=== PATIENT | female | born 1930 | race Caucasian/White ===

== ENCOUNTER 2019-08-31 16:14 | Inpatient (IN) | payer MEDICARE, BC, OTHER ==
--- NOTE | 2019-08-31 17:03 | CT ---
[id number] CT/CT Head WO IV EXAM: CT Head WO IV CLINICAL DATA: FREQUENT FALLS COMPARISON STUDY: 12/21/2017. FINDINGS: No intracranial hemorrhage, extra-axial fluid collection, mass, or acute ischemia. Generalized parenchymal atrophy with scattered areas of nonspecific white matter disease, commonly seen as sequela of chronic microvascular ischemia. Soft tissues are unremarkable. Paranasal sinuses and mastoid air cells are clear. IMPRESSION: No acute intracranial findings. Ty Otto DO 08/31/19 1918 Thank you for allowing us to participate in the care of your patient.
[2019-08-31] MEDS ORDERED: Calcium Carbonate/Vitamin D3 1250 MG-200 Unit Tab PO PRN (18:05)
[2019-08-31] MEDS ORDERED: Bisacodyl 5 MG Tab PO PRN (18:05)
[2019-08-31] MEDS ORDERED: Menthol/Methyl Salicylate 85 GM Tube TOP PRN (18:05)
[2019-08-31] MEDS ORDERED: Sodium Chloride 0.9% 1,000 ML IV SCH (18:30)
[2019-08-31] MEDS: Latanoprost 0.005% Ophth Soln 2.5 ML Bottle EYEBOTH SCH (20:27)
[2019-08-31] MEDS: Acetaminophen 500 MG Tab PO SCH (20:28)
[2019-08-31] MEDS: Gabapentin 100 MG Cap PO SCH ×2 (20:30)
[2019-08-31] MEDS: Melatonin 3 MG Tab PO SCH (20:31)
[2019-08-31] MEDS: Baclofen 10 MG Tab PO SCH (20:32)
[2019-08-31] MEDS: Sulfamethoxazole/Trimethoprim 800-160 MG Tab PO SCH (20:32)
[2019-08-31] MEDS: Polyethylene Glycol 3350 Powder 17 GM Packet PO SCH (20:32)
--- NOTE | 2019-08-31 22:08 | PCM.SN.2 ---
- Free Text/Narrative Note: Called by nurse that patient is restless despite taking her pm medications. Not cooperative with cares but not overtly combative. She has taken benadryl in the past (as recently as 2016). Therefore, will try this first before doing any more risky medications. If this is not effective, will consider a dose of seroquel.
[2019-08-31] MEDS: Calcium Carbonate/Vitamin D3 1250 MG-200 Unit Tab PO SCH (23:00)
[2019-08-31] MEDS: diphenhydrAMINE 25 MG Cap PO PRN (23:02)
--- NOTE | 2019-09-01 06:04 | HP ---
CHIEF COMPLAINT: Frequent falls. HISTORY OF PRESENT ILLNESS: The patient is an 89-year-old female, resident of Dr. Bijal Oneil from [facility]. She has had 4 falls since 07/16/2019. She is currently being treated with a bladder infection of E coli with Bactrim DS from 08/28/2019. She was brought over to the clinic because of concerns with falls, hematoma, more assistance. She is fatigued. The patient is pleasantly confused. She denies pain. [place]. She has not had any nausea or vomiting. Her pain has not been significant. To note, her caregiver who brought her over is not really familiar with her story as to when she had fallen. The patient has a history of dementia as well as has had previous cerebral hemorrhage that happened on 12/24/2017. MEDICATIONS: That she is currently on are Aleve 220 mg 1 pill twice a day scheduled, Aspercreme 10% to left hip p.r.n. t.i.d., baclofen 10 mg 1 pill a day, Bactrim DS 1 pill twice a day for 5 days started on 08/28/2019, bisacodyl laxative 5 mg daily as needed for constipation, calcium with vitamin D 315/250 one pill twice a day, Cymbalta 60 mg, she gets 90 mg once a day for pain, Estrace vaginal cream externally in anya area once a day every Tuesday and Tuesday. She has extra strength Tylenol 500 mg 2 pills 3 times a day, gabapentin 300 mg 1 pill a day and 200 mg 1 pill twice a day, eye vitamins 1 pill twice a day, Lasix 20 mg 1 pill daily, levothyroxine 137 mcg 1 pill a day, lidocaine patch 4% to left hip, remove after 12 hours, melatonin 3 mg 2 pills at bedtime, MiraLAX powder 17 g twice a day, multivitamin 1 pill a day, Norvasc 5 mg 1 pill a day, Senna Plus 8.6/50 mg 1 pill twice a day, Tums chewable 500 mg 2 pills 4 times a day as needed, Vasotec 15 mg 1 pill daily, vitamin D 1000 units 1 pill a day, Xalatan 0.005% 1 drop both eyes a day. ALLERGIES: Adhesive tape, mesh use for surgery. The patient is code level 2 status. PAST MEDICAL HISTORY: The patient has Alzheimer dementia, anxiety disorder, hypertension, gastroesophageal reflux disease, depressed mood with an adjustment disorder, anxiety disorder, chronic constipation, hyperlipidemia, nonrheumatic valvular heart disease, cerebral hemorrhage without loss of consciousness, frequent falls, hypothyroidism, fibromyalgia, hormone replacement therapy, atrophic vaginitis, muscle weakness, glaucoma, type 2 diabetes mellitus, chronic low back pain. She also has benign positional vertigo, E coli UTI from 08/28/2019, glaucoma, hyperlipidemia, mitral regurgitation, uterine cancer in 1997. PAST SURGICAL HISTORY: She had a foot fracture with ORIF in 2011. She had an appendectomy, arthroplasty of her knee. She had a , cholecystectomy, hernia repair, joint replacement of both knees. She has had laminectomy with partial facetectomy, foraminotomy, herniated diskectomy. She has had spine surgery x2. She had tonsillectomy and adenoidectomy. She has had total abdominal hysterectomy for uterine cancer in 1997. FAMILY MEDICAL HISTORY: Mother had a fractured hip. Father had diabetes. Otherwise, other family history is not known. SOCIAL HISTORY: She has never smoked. She has been a resident of [facility] since 2018. She has 3 daughters and 1 son. REVIEW OF SYSTEMS: The patient usually walks with a walker. She does have chronic back pain. Does have reflux. She has forgetfulness. No coughing or shortness of breath. She does have bruising of her eye on the right side of her face. She has had frequent falls. The patient is very forgetful. PHYSICAL EXAMINATION: Vital Signs: The patient's vital signs show that her weight is 145 pounds, her blood pressure is 144/68, temperature is 98.2, pulse 88, sats are 97%. To note, she has had a weight loss of 10 pounds over the past 2 months. Skin: She has bruising on her right forehead, her right external eye ball area, as well as zygomatic arch. HEENT: Her skull is nontender to palpation. Pupils are equal and reactive to light. Extraocular eye movements are intact. Retinal exam is normal. Her tympanic membranes are normal with no hemotympanum. Nose is nontender to palpation. Pharynx is normal. Neck: Supple. No anterior cervical lymphadenopathy. Heart: Regular rate and rhythm with 2/6 systolic ejection murmur. Lungs: Clear to auscultation. Abdomen: Obese, soft, nontender. No hepatosplenomegaly. Back: She has some chronic low back pain in her right sciatic area. Pelvic, , and Breasts: Deferred. Lower Extremities: Have no deformities. Nontender. Neurologic: She is pleasantly confused. She thinks she is going back to the farm. She does get weak with standing. She does have back pain. 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 She can raise her arms to about 90 degrees and no further. She can flex her leg. She is a little bit weak with standing. Psych: The patient is pleasantly confused. No concept of where she is or where she lives. She is very forgetful. LABORATORY DATA: Her lab done at the clinic showed that her sodium is 128, which is deviated from her previous sodium that was last done on 06/21/2019 when it was 132, potassium is 5.2, creatinine is 0.8, GFR is 64, glucose is 108, CO2 of 25, chloride 91, calcium 9.8. Hemoglobin is 13.6, white blood cell count 8.0, platelet count 3000. Differential was referred to [place]. Her last hemoglobin A1c on 06/21/2019 was 6.5. Last TSH on 04/18/2019 was 9.77. The patient's urine done on 08/28/2019 showed E coli present that was sensitive to Bactrim. IMPRESSION: 1. Hyponatremia. 2. Frequent falls. 3. Contusion of head. 4. Alzheimer dementia. 5. Past history of cerebral hemorrhage with mixed current urinary tract infection. 6. Type 2 diabetes mellitus. 7. Chronic low back pain. PLAN: Because of concerns with the patient's electrolyte abnormalities and falls, I do feel she should be admitted to acute care to [facility]. We will obtain head CT imaging. We will continue her on her antibiotic of Bactrim for her bladder infection. We will give IV hydration with normal saline. We will have Physical Therapy assess the patient. However, it is a weekend and so they will not be able to see the patient until 08/04/2019. The patient is code level 2 status, so no resuscitation, no intubation, and that it is anticipated that the patient will be able to return to [facility]. We will check serial electrolytes on the patient. Dr. Shannon Mccarthy is an on-call physician for the weekend and she has been notified of the patient's admission as well as Dr. Bijal Vieira. The patient will not be placed on Lovenox for DVT prophylaxis because of concerns with frequent falls with head injuries, that she placed herself at risk for subdural bleeds. We will monitor her thyroid and diabetes as well. GM08/31/2019 17:40:27 MODL: 08/31/2019 19:46:56 /[id number]
[2019-09-01] MEDS: Levothyroxine 25 MCG Tab PO SCH (06:26)
[2019-09-01] MEDS: Levothyroxine 112 MCG Tab PO SCH (06:26)
[2019-09-01] MEDS: Multivitamins with Iron/Calcium/Folic Acid/Minerals Tab PO SCH (08:16)
[2019-09-01] MEDS: Gabapentin 100 MG Cap PO SCH ×3 (08:16→20:08)
[2019-09-01] MEDS: DULoxetine 30 MG Cap PO SCH (08:16)
[2019-09-01] MEDS: Cholecalciferol (Vitamin D3) 25 MCG Tab PO SCH (08:16)
[2019-09-01] MEDS: Acetaminophen 500 MG Tab PO SCH ×3 (08:16→20:10)
[2019-09-01] MEDS: DULoxetine 60 MG Cap PO SCH (08:17)
[2019-09-01] MEDS: Beta-Carotene (Vitamin A) w/Vitamin C & E plus Minerals Tab PO SCH ×2 (08:17→20:10)
[2019-09-01] MEDS: Furosemide 20 MG Tab PO SCH (08:17)
[2019-09-01] MEDS: amLODIPine 5 MG Tab PO SCH (08:17)
[2019-09-01] MEDS: Sulfamethoxazole/Trimethoprim 800-160 MG Tab PO SCH ×2 (08:17→20:10)
[2019-09-01] MEDS: Polyethylene Glycol 3350 Powder 17 GM Packet PO SCH ×2 (08:17→20:09)
[2019-09-01] MEDS: Calcium Carbonate/Vitamin D3 1250 MG-200 Unit Tab PO SCH ×2 (08:17→20:10)
[2019-09-01] MEDS: Lidocaine 4% 1 each Patch TOP SCH (08:17)
[2019-09-01 08:18] LABS: CHLORIDE,CL 92 mmol/L (98-107)
[2019-09-01 08:19] LABS: ANION GAP 14.2 mmol/L (10-20); SODIUM,NA 127 mmol/L (136-145)
--- NOTE | 2019-09-01 10:41 | PCM.PN ---
- General Info Date of Service: 09/01/19 Subjective Update: 89 yo female hospital day #2 admitted with frequent falls and hyponatremia. The patient got very little sleep last night. She is wondering about getting up and dressed this morning. She also states she is having some neck pain going in to her shoulders. She does recall falling a few days ago and hitting her head. Nursing staff note that she is a heavy 2 assist at this point compared to her usual stand-by assist at the care center. She has not complained of pain with weight bearing. Her daughter is wondering about hip x-rays to make sure she did not sustain a hip fracture to explain her ongoing difficulty with mobility. - Review of Systems Systems Review Comment:: Unable to assess as patient is not a reliable historian in the setting of severe dementia - Patient Data Vitals - Most Recent: Last Vital Signs Temp 36.3 C 09/01/19 09:34 Pulse 84 09/01/19 09:34 Resp 17 09/01/19 09:34 BP 135/57 L 09/01/19 09:34 Pulse Ox 94 L 09/01/19 09:34 Weight - Most Recent: 68.266 kg I&O - Last 24 Hours: Intake & Output 08/31/19 09/01/19 09/01/19 22:59 06:59 14:59 Intake Total 440 780 100 Output Total 300 1400 Balance 140 -620 100 Lab Results Last 24 Hours: Laboratory Results - last 24 hr 08/31/19 08/31/19 09/01/19 Range/Units 17:52 23:05 07:40 WBC 7.7 (4.0-10.0) x10^3/uL RBC 4.33 (4.00-5.50) x10^6/uL Hgb 12.8 (12.0-16.0) g/dL Hct 38.5 (33.0-47.0) % MCV 88.9 D (78.0-93.0) fL MCH 29.6 (26.0-32.0) pg MCHC 33.2 (32.0-36.0) g/dL RDW Coeff of [place] 12.9 (10.0-15.0) % Plt Count 289 (130-400) x10^3/uL Neut % (Auto) 65.1 (50.0-80.0) % Lymph % (Auto) 16.0 L (25.0-50.0) % [place] % (Auto) 16.3 H (2.0-11.0) % Eos % (Auto) 2.3 (0.0-4.0) % Baso % (Auto) 0.3 (0.2-1.2) % Sodium (136-145) mmol/L Potassium (3.5-5.1) mmol/L Chloride (98-107) mmol/L Carbon Dioxide (21-32) mmol/L Anion Gap (10-20) mmol/L BUN (7-18) mg/dL Creatinine (0.55-1.02) mg/dL Est Cr Clr Drug Dosing mL/min Estimated GFR (MDRD) Glucose (74-106) mg/dL POC Glucose 127 H (74-106) mg/dL Calcium (8.5-10.1) mg/dL Magnesium (1.8-2.4) mg/dL TSH, Ultra Sensitive (0.358-3.74) uIU/mL COVID-19 ([facility]) Negative (NEGATIVE) 09/01/19 Range/Units 07:40 WBC (4.0-10.0) x10^3/uL RBC (4.00-5.50) x10^6/uL Hgb (12.0-16.0) g/dL Hct (33.0-47.0) % MCV (78.0-93.0) fL MCH (26.0-32.0) pg MCHC (32.0-36.0) g/dL RDW Coeff of [place] (10.0-15.0) % Plt Count (130-400) x10^3/uL Neut % (Auto) (50.0-80.0) % Lymph % (Auto) (25.0-50.0) % [place] % (Auto) (2.0-11.0) % Eos % (Auto) (0.0-4.0) % Baso % (Auto) (0.2-1.2) % Sodium 127 L* (136-145) mmol/L Potassium 4.2 (3.5-5.1) mmol/L Chloride 92 L (98-107) mmol/L Carbon Dioxide 25 (21-32) mmol/L Anion Gap 14.2 (10-20) mmol/L BUN 13 (7-18) mg/dL Creatinine 0.6 (0.55-1.02) mg/dL Est Cr Clr Drug Dosing 55.97 mL/min Estimated GFR (MDRD) > 60 Glucose 118 H (74-106) mg/dL POC Glucose (74-106) mg/dL Calcium 8.6 (8.5-10.1) mg/dL Magnesium 1.9 (1.8-2.4) mg/dL TSH, Ultra Sensitive 5.661 H (0.358-3.74) uIU/mL COVID-19 ([facility]) (NEGATIVE) Med Orders - Current: Current Medications Acetaminophen (Tylenol Extra Strength) 1,000 mg PO TID [facility] Last Admin: 09/01/19 08:16 Dose: 1,000 mg Documented by: Amlodipine Besylate (Norvasc) 5 mg PO DAILY [facility] Last Admin: 09/01/19 08:17 Dose: 5 mg Documented by: Baclofen (Lioresal) 10 mg PO BEDTIME [facility] Last Admin: 08/31/19 20:32 Dose: 10 mg Documented by: Bisacodyl (Dulcolax) 5 mg PO DAILY PRN PRN Reason: Constipation Calcium Carbonate (Calcium Carbonate/Vitamin D 1250 Mg-200 Unit) 2 tab PO QID PRN PRN Reason: Dyspepsia Last Admin: 08/31/19 20:31 Dose: 2 tab Documented by: Calcium Carbonate (Calcium Carbonate/Vitamin D 1250 Mg-200 Unit) 1 tab PO BID [facility] Last Admin: 09/01/19 08:17 Dose: 1 tab Documented by: Cholecalciferol (Vitamin D3) 25 mcg PO DAILY [facility] Last Admin: 09/01/19 08:16 Dose: 25 mcg Documented by: Diphenhydramine HCl (Benadryl) 25 mg PO BEDTIME PRN PRN Reason: Insomnia Last Admin: 08/31/19 23:02 Dose: 25 mg Documented by: Duloxetine HCl (Cymbalta) 30 mg PO DAILY [facility] Last Admin: 09/01/19 08:16 Dose: 30 mg Documented by: Duloxetine HCl (Cymbalta) 60 mg PO DAILY [facility] Last Admin: 09/01/19 08:17 Dose: 60 mg Documented by: Enalapril Maleate (Vasotec) 15 mg PO DAILY [facility] Last Admin: 09/01/19 08:16 Dose: 15 mg Documented by: Furosemide (Lasix) 20 mg PO DAILY [facility] Last Admin: 09/01/19 08:17 Dose: 20 mg Documented by: Gabapentin (Neurontin) 300 mg PO BEDTIME [facility] Last Admin: 08/31/19 20:30 Dose: 300 mg Documented by: Gabapentin (Neurontin) 200 mg PO BID [facility] Last Admin: 09/01/19 08:16 Dose: 200 mg Documented by: Sodium Chloride (Normal Saline) 1,000 mls @ 100 mls/hr IV ASDIRECTED [facility] Last Admin: 09/01/19 08:20 Dose: 100 mls/hr Documented by: Latanoprost (Xalatan 0.005% Oph Soln) 0 ml EYEBOTH BEDTIME [facility] Last Admin: 08/31/19 20:27 Dose: 1 drop Documented by: Levothyroxine Sodium (Levothyroxine) 112 mcg PO ACBREAKFAST [facility] Last Admin: 09/01/19 06:26 Dose: 112 mcg Documented by: Levothyroxine Sodium (Levothyroxine) 25 mcg PO ACBREAKFAST [facility] Last Admin: 09/01/19 06:26 Dose: 25 mcg Documented by: Lidocaine (Aspercreme 4%) 2 each TOP DAILY [facility] Last Admin: 09/01/19 08:17 Dose: Not Given Documented by: Melatonin (Melatonin) 6 mg PO BEDTIME [facility] Last Admin: 08/31/19 20:31 Dose: 6 mg Documented by: Methyl Salicylate (Icy Hot Cream) 0 gm TOP TID PRN PRN Reason: Pain Miscellaneous Information (Remove Patch) 2 ea TRDERM Q24H [facility] Multivitamins/Minerals (Thera M Plus) 1 tab PO DAILY [facility] Last Admin: 09/01/19 08:16 Dose: 1 tab Documented by: Multivitamins/Minerals (Prosight) 1 tab PO BID [facility] Last Admin: 09/01/19 08:17 Dose: 1 tab Documented by: Naproxen (Naproxen Sodium) 220 mg PO BID PRN PRN Reason: Pain Last Admin: 08/31/19 20:31 Dose: 220 mg Documented by: Non-Formulary Medication (Estradiol [Estrace 0.01% Vaginal Crm]) 2 gram TOP Q7D [facility] Polyethylene Glycol (Miralax) 17 gm PO BID [facility] Last Admin: 09/01/19 08:17 Dose: Not Given Documented by: Senna/Docusate Sodium (Senna Plus) 1 tab PO BID [facility] Last Admin: 09/01/19 08:15 Dose: 1 tab Documented by: Trimethoprim/Sulfamethoxazole (Septra Ds) 1 tab PO BID [facility] Stop: 09/02/19 23:59 Last Admin: 09/01/19 08:17 Dose: 1 tab Documented by: - Exam General: Alert, Cooperative, No Acute Distress HEENT: Pupils Equal, Pupils Reactive, Mucous Membr. Moist/[place] Neck: Supple, Trachea Midline, No Thyromegaly. No: Lymphadenopathy Lungs: Clear to Auscultation, Normal Respiratory Effort Cardiovascular: Regular Rate, Regular Rhythm, No Murmurs GI/Abdominal Exam: Normal Bowel Sounds, Soft, Non-Tender, No Organomegaly, No Distention, No Mass Back Exam: Paraspinal Tenderness (cervical spine) Extremities: Non-Tender, No Pedal Edema, Normal Capillary Refill Peripheral Pulses: 2+: Radial (L), Radial (R) Skin: Warm, Dry, Intact Sepsis Event Note - Evaluation Sepsis Screening Result: No Definite Risk - Focused Exam Vital Signs: Vital Signs Temp Pulse Resp BP BP Pulse Ox 09/01/19 09:34 36.3 C 84 17 135/57 L 94 L 09/01/19 08:17 187/87 H 09/01/19 08:16 187/87 H 09/01/19 06:00 36.5 C 103 H 20 185/87 H 96 Date Exam was Performed: 09/01/19 Time Exam was Performed: 10:35 - Problem List & Annotations (1) Frequent falls SNOMED Code(s): 567741703 Code(s): R29.6 - REPEATED FALLS Status: Acute Current Visit: Yes (2) Head contusion SNOMED Code(s): 747208984 Code(s): S00.93XA - CONTUSION OF UNSPECIFIED PART OF HEAD, INITIAL ENCOUNTER Status: Acute Current Visit: Yes Qualifiers: Encounter type: subsequent encounter Contusion of head detail: orbital tissues Laterality: right Qualified Code(s): S05.11XD - Contusion of eyeball and orbital tissues, right eye, subsequent encounter (3) Hyponatremia SNOMED Code(s): 47441710 Code(s): E87.1 - HYPO-OSMOLALITY AND HYPONATREMIA Status: Chronic Current Visit: Yes (4) Alzheimer's dementia SNOMED Code(s): 81114642 Code(s): G30.9 - ALZHEIMER'S DISEASE, UNSPECIFIED; F02.80 - DEMENTIA IN OTH DISEASES CLASSD ELSWHR W/O BEHAVRL DISTURB Status: Chronic Current Visit: Yes Qualifiers: Alzheimer's disease onset: late-onset Dementia behavioral disturbance: without behavioral disturbance Qualified Code(s): G30.1 - Alzheimer's disease with late onset; F02.80 - Dementia in other diseases classified elsewhere without behavioral disturbance (5) Diabetes mellitus SNOMED Code(s): 30025990 Code(s): E11.9 - TYPE 2 DIABETES MELLITUS WITHOUT COMPLICATIONS Status: Chronic Current Visit: Yes Qualifiers: Diabetes mellitus type: type 2 Diabetes mellitus shelter insulin use: without shelter use Diabetes mellitus complication status: without complication Qualified Code(s): E11.9 - Type 2 diabetes mellitus without complications (6) Low back pain SNOMED Code(s): 343359177 Code(s): M54.5 - LOW BACK PAIN Status: Chronic Current Visit: Yes Qualifiers: Chronicity: chronic Back pain laterality: unspecified Sciatica presence: unspecified whether sciatica present Qualified Code(s): M54.5 - Low back pain; G89.29 - Other chronic pain - Problem List Review Problem List Initiated/Reviewed/Updated: Yes - My Orders Last 24 Hours: My Active Orders 08/31/19 22:06 diphenhydrAMINE [Benadryl] 25 mg PO BEDTIME PRN 08/31/19 23:05 CULTURE MRSA SURVEY [RM] Routine 09/01/19 09:24 Cervical Spine wo Cont [CT] Routine 09/01/19 09:52 Hip Min 2V w Pelvis Bi [CR] Routine 09/01/19 15:00 SODIUM,NA [CHEM] Routine 09/02/19 05:11 BASIC METABOLIC PANEL,BMP [CHEM] Routine CBC WITH AUTO DIFF [HEME] Routine - Assessment Assessment:: 89 yo female hospital day #2 with hyponatremia and a decline in functional status. Sodium is stable today. Patient with no change in symptoms from admission. - Plan Plan:: #1 Frequent Falls #2 Head Contusion - Cause for her decline in mobility remains unclear. - Doubt the hyponatremia as her last sodium was 132 so she is not far off from her baseline at this point. She is being treated for a UTI, which could contribute. No other s/s of infection; COVID test was negative. CT head negative on admission. - Will do neck CT to exclude any fracture there as the cause in light of her significant status change and complaints of neck pain. Also reasonable to do hip x-rays as her daughter requests. - Otherwise, will monitor labs daily. - Polypharmacy may be a contributor and her medications can be reviewed if symptoms do not improve. #3 Hyponatremia, chronic - Patient will get another 500 mL of IV fluids today. Does not appear she was significantly dehydrated on admit. Also no evidence this is CHF exacerbation. - Sodium has been low since at least June (132 in June); therefore, this is not an acute change. - Is also not likely the cause for her other symptoms. - Will obtain urine sodium and osmolality in the am to help clarify. #4 Alzheimer dementia - Continue frequent reorientation. - Continue home medications. #5 UTI - Patient will complete her course of bactrim tomorrow. #6 Type 2 DM - This is diet controlled. - Will not monitor glucoses aside from with am labs. #7 Chronic low back pain - Continue home medications. Patient will remain on acute status today - anticipate she will stay through the weekend given residence in a SNF. See plan as above. Code status is DNR/DNI - discussed on admission. Patient is not on pharmacologic VTE prophylaxis as it is felt the risks outweigh the benefits.
--- NOTE | 2019-09-01 13:44 | CT ---
[id number] CT/CT Cervical Spine WO IV Exam: CT Cervical Spine WO IV CLINICAL DATA: FALL. COMPARISON: None. FINDINGS: No definite acute fractures identified. Grade 1 anterolisthesis of C4 over C5 and C7 over T1. The C1-C2 articulation is unremarkable. The prevertebral soft tissues are within normal limits. Advanced degenerative changes of the cervical spine including loss of disc space height, endplate osteophytosis and facet arthropathy. These findings are most pronounced at C3-C4 IMPRESSION: NO DEFINITE ACUTE FRACTURE OR SUBLUXATION. Ty Otto DO 09/01/19 [id number] Thank you for allowing us to participate in the care of your patient.
--- NOTE | 2019-09-01 13:46 | CR ---
[id number] RAD/RAD Pelvis 1V W Chance Hip 2V EXAM: 5 VIEWS PELVIS AND BILATERAL HIPS. INDICATION: FALL, WEAKNESS. COMPARISON: None. DISCUSSION: No definite acute fracture, dislocation or other acute osseous abnormality. [id number] degenerative changes of the femoral acetabular joint bilaterally. There appear to be old healed fractures of the left superior and inferior pubic ramus. IMPRESSION: 1. Old healed fractures of the left superior and inferior pubic ramus. No definite acute fractures identified. Ty Otto DO 09/01/19 [id number] Thank you for allowing us to participate in the care of your patient.
[2019-09-01] MEDS: Melatonin 3 MG Tab PO SCH (20:09)
[2019-09-01] MEDS: Baclofen 10 MG Tab PO SCH (20:10)
[2019-09-01] MEDS: diphenhydrAMINE 25 MG Cap PO PRN (20:10)
[2019-09-01] MEDS: Latanoprost 0.005% Ophth Soln 2.5 ML Bottle EYEBOTH SCH (20:11)
[2019-09-01] MEDS: Sodium Chloride 1 GM Tab PO SCH (20:15)
[2019-09-02] MEDS: Levothyroxine 25 MCG Tab PO SCH (06:13)
[2019-09-02] MEDS: Levothyroxine 112 MCG Tab PO SCH (06:13)
[2019-09-02] MEDS: DULoxetine 30 MG Cap PO SCH (07:40)
[2019-09-02] MEDS: Multivitamins with Iron/Calcium/Folic Acid/Minerals Tab PO SCH (07:40)
[2019-09-02] MEDS: Sulfamethoxazole/Trimethoprim 800-160 MG Tab PO SCH ×2 (07:40→20:09)
[2019-09-02] MEDS: Gabapentin 100 MG Cap PO SCH ×3 (07:40→20:08)
[2019-09-02] MEDS: DULoxetine 60 MG Cap PO SCH (07:40)
[2019-09-02] MEDS: Cholecalciferol (Vitamin D3) 25 MCG Tab PO SCH (07:40)
[2019-09-02] MEDS: Acetaminophen 500 MG Tab PO SCH ×3 (07:40→20:09)
[2019-09-02] MEDS: Furosemide 20 MG Tab PO SCH (07:41)
[2019-09-02] MEDS: Polyethylene Glycol 3350 Powder 17 GM Packet PO SCH ×2 (07:41→20:10)
[2019-09-02] MEDS: amLODIPine 5 MG Tab PO SCH (07:41)
[2019-09-02] MEDS: Calcium Carbonate/Vitamin D3 1250 MG-200 Unit Tab PO SCH ×2 (07:41→20:09)
[2019-09-02] MEDS: Lidocaine 4% 1 each Patch TOP SCH ×2 (07:42→09:43)
[2019-09-02] MEDS: Beta-Carotene (Vitamin A) w/Vitamin C & E plus Minerals Tab PO SCH ×2 (07:42→20:09)
[2019-09-02] MEDS: Sodium Chloride 1 GM Tab PO SCH ×3 (07:43→20:36)
[2019-09-02 08:22] LABS: ANION GAP 14.1 mmol/L (10-20)
[2019-09-02] MEDS ORDERED: ESTRADIOL TOP SCH (09:00)
--- NOTE | 2019-09-02 09:24 | PCM.PN ---
- General Info Date of Service: 09/02/19 Subjective Update: 89 yo female hospital day #3 admitted with frequent falls and hyponatremia. She states she is tired today. She has not really slept since admission. Staff also note she is more confused today than yesterday. She otherwise denies concerns and staff deny any other specific complaints. - Review of Systems General: Reports: No Symptoms HEENT: Reports: No Symptoms Pulmonary: Reports: No Symptoms Cardiovascular: Reports: No Symptoms Gastrointestinal: Reports: No Symptoms Genitourinary: Reports: No Symptoms Musculoskeletal: Reports: No Symptoms Skin: Reports: No Symptoms Systems Review Comment:: patient denies symptoms - reliability of history is questionable in the setting of underlying dementia - Patient Data Vitals - Most Recent: Last Vital Signs Temp 35.4 C L 09/02/19 06:00 Pulse 92 09/02/19 06:00 Resp 20 09/02/19 06:00 BP 149/57 H 09/02/19 07:41 Pulse Ox 96 09/02/19 06:00 Weight - Most Recent: 68.266 kg I&O - Last 24 Hours: Intake & Output 09/01/19 09/02/19 09/02/19 22:59 06:59 14:59 Intake Total 800 Output Total 900 Balance -100 Lab Results Last 24 Hours: Laboratory Results - last 24 hr 09/01/19 09/02/19 09/02/19 Range/Units 14:58 06:12 07:44 WBC 11.2 H (4.0-10.0) x10^3/uL RBC 4.72 (4.00-5.50) x10^6/uL Hgb 14.1 (12.0-16.0) g/dL Hct 42.0 (33.0-47.0) % MCV 89.0 (78.0-93.0) fL MCH 29.9 (26.0-32.0) pg MCHC 33.6 (32.0-36.0) g/dL RDW Coeff of Nolvia 13.2 (10.0-15.0) % Plt Count 350 (130-400) x10^3/uL Add Manual Diff Yes Neutrophils % (Manual) 58 (50-80) % Band Neutrophils % 5 (0-6) % Lymphocytes % (Manual) 19 L (25-50) % Monocytes % (Manual) 13 H (2-11) % Eosinophils % (Manual) 2 (0-4) % Metamyelocytes % 3 H (0) % Platelet Estimate Adequate Anisocytosis 1+ slight H Sodium 127 L* (136-145) mmol/L Potassium (3.5-5.1) mmol/L Chloride (98-107) mmol/L Carbon Dioxide (21-32) mmol/L Anion Gap (10-20) mmol/L BUN (7-18) mg/dL Creatinine (0.55-1.02) mg/dL Est Cr Clr Drug Dosing mL/min Estimated GFR (MDRD) Glucose (74-106) mg/dL POC Glucose 119 H (74-106) mg/dL Calcium (8.5-10.1) mg/dL NT-Pro-B Natriuret Pep (<=450) pg/mL 09/02/19 Range/Units 07:44 WBC (4.0-10.0) x10^3/uL RBC (4.00-5.50) x10^6/uL Hgb (12.0-16.0) g/dL Hct (33.0-47.0) % MCV (78.0-93.0) fL MCH (26.0-32.0) pg MCHC (32.0-36.0) g/dL RDW Coeff of Nolvia (10.0-15.0) % Plt Count (130-400) x10^3/uL Add Manual Diff Neutrophils % (Manual) (50-80) % Band Neutrophils % (0-6) % Lymphocytes % (Manual) (25-50) % Monocytes % (Manual) (2-11) % Eosinophils % (Manual) (0-4) % Metamyelocytes % (0) % Platelet Estimate Anisocytosis Sodium 126 L* (136-145) mmol/L Potassium 5.1 (3.5-5.1) mmol/L Chloride 92 L (98-107) mmol/L Carbon Dioxide 25 (21-32) mmol/L Anion Gap 14.1 (10-20) mmol/L BUN 22 H (7-18) mg/dL Creatinine 0.9 (0.55-1.02) mg/dL Est Cr Clr Drug Dosing 37.31 mL/min Estimated GFR (MDRD) 59 Glucose 132 H (74-106) mg/dL POC Glucose (74-106) mg/dL Calcium 9.6 (8.5-10.1) mg/dL NT-Pro-B Natriuret Pep 142 (<=450) pg/mL Sudhir Results Last 24 Hours: Microbiology 08/31/19 23:05 MRSA Surveillance Culture - Final Nasal, Unspecified NO MRSA ISOLATED Med Orders - Current: Current Medications Acetaminophen (Tylenol Extra Strength) 1,000 mg PO TID [facility] Last Admin: 09/02/19 07:40 Dose: 1,000 mg Documented by: Amlodipine Besylate (Norvasc) 5 mg PO DAILY [facility] Last Admin: 09/02/19 07:41 Dose: 5 mg Documented by: Baclofen (Lioresal) 10 mg PO BEDTIME [facility] Last Admin: 09/01/19 20:10 Dose: 10 mg Documented by: Bisacodyl (Dulcolax) 5 mg PO DAILY PRN PRN Reason: Constipation Calcium Carbonate (Calcium Carbonate/Vitamin D 1250 Mg-200 Unit) 2 tab PO QID PRN PRN Reason: Dyspepsia Last Admin: 08/31/19 20:31 Dose: 2 tab Documented by: Calcium Carbonate (Calcium Carbonate/Vitamin D 1250 Mg-200 Unit) 1 tab PO BID [facility] Last Admin: 09/02/19 07:41 Dose: 1 tab Documented by: Cholecalciferol (Vitamin D3) 25 mcg PO DAILY [facility] Last Admin: 09/02/19 07:40 Dose: 25 mcg Documented by: Diphenhydramine HCl (Benadryl) 25 mg PO BEDTIME PRN PRN Reason: Insomnia Last Admin: 09/01/19 20:10 Dose: 25 mg Documented by: Duloxetine HCl (Cymbalta) 30 mg PO DAILY [facility] Last Admin: 09/02/19 07:40 Dose: 30 mg Documented by: Duloxetine HCl (Cymbalta) 60 mg PO DAILY [facility] Last Admin: 09/02/19 07:40 Dose: 60 mg Documented by: Enalapril Maleate (Vasotec) 15 mg PO DAILY [facility] Last Admin: 09/02/19 07:41 Dose: 15 mg Documented by: Furosemide (Lasix) 20 mg PO DAILY [facility] Last Admin: 09/02/19 07:41 Dose: 20 mg Documented by: Gabapentin (Neurontin) 300 mg PO BEDTIME [facility] Last Admin: 09/01/19 20:08 Dose: 300 mg Documented by: Gabapentin (Neurontin) 200 mg PO BID [facility] Last Admin: 09/02/19 07:40 Dose: 200 mg Documented by: Sodium Chloride (Normal Saline) 1,000 mls @ 100 mls/hr IV ASDIRECTED [facility] Latanoprost (Xalatan 0.005% Ophth Soln) 0 ml EYEBOTH BEDTIME [facility] Last Admin: 09/01/19 20:11 Dose: 1 drop Documented by: Levothyroxine Sodium (Levothyroxine) 112 mcg PO ACBREAKFAST [facility] Last Admin: 09/02/19 06:13 Dose: 112 mcg Documented by: Levothyroxine Sodium (Levothyroxine) 25 mcg PO ACBREAKFAST [facility] Last Admin: 09/02/19 06:13 Dose: 25 mcg Documented by: Lidocaine (Aspercreme 4%) 2 each TOP DAILY [facility] Last Admin: 09/02/19 07:42 Dose: Not Given Documented by: Melatonin (Melatonin) 6 mg PO BEDTIME [facility] Last Admin: 09/01/19 20:09 Dose: 6 mg Documented by: Methyl Salicylate (Icy Hot Cream) 0 gm TOP TID PRN PRN Reason: Pain Miscellaneous Information (Remove Patch) 2 ea TRDERM Q24H [facility] Last Admin: 09/01/19 20:12 Dose: 2 ea Documented by: Multivitamins/Minerals (Thera M Plus) 1 tab PO DAILY [facility] Last Admin: 09/02/19 07:40 Dose: 1 tab Documented by: Multivitamins/Minerals (Prosight) 1 tab PO BID [facility] Last Admin: 09/02/19 07:42 Dose: 1 tab Documented by: Naproxen (Naproxen Sodium) 220 mg PO BID PRN PRN Reason: Pain Last Admin: 09/01/19 20:10 Dose: 220 mg Documented by: Non-Formulary Medication (Estradiol [Estrace 0.01% Vaginal Crm]) 2 gram TOP Q7D [facility] Polyethylene Glycol (Miralax) 17 gm PO BID [facility] Last Admin: 09/02/19 07:41 Dose: Not Given Documented by: Senna/Docusate Sodium (Senna Plus) 1 tab PO BID [facility] Last Admin: 09/02/19 07:40 Dose: 1 tab Documented by: Sodium Chloride (Sodium Chloride) 1 gm PO BID MARGOT Last Admin: 09/02/19 07:43 Dose: 1 gm Documented by: Trimethoprim/Sulfamethoxazole (Septra Ds) 1 tab PO BID MARGOT Stop: 09/02/19 23:59 Last Admin: 09/02/19 07:40 Dose: 1 tab Documented by: Discontinued Medications Sodium Chloride (Normal Saline) 1,000 mls @ 100 mls/hr IV ASDIRECTED MARGOT Last Admin: 09/01/19 08:20 Dose: 100 mls/hr Documented by: - Exam General: Alert, Cooperative, No Acute Distress HEENT: Mucous Membr. Moist/[place] Neck: Supple, Trachea Midline, No Thyromegaly. No: Lymphadenopathy Lungs: Clear to Auscultation, Normal Respiratory Effort Cardiovascular: Regular Rate, Regular Rhythm, No Murmurs GI/Abdominal Exam: Normal Bowel Sounds, Soft, Non-Tender, No Organomegaly, No Distention, No Mass Extremities: Non-Tender, No Pedal Edema, Normal Capillary Refill Peripheral Pulses: 2+: Radial (L), Radial (R) Skin: Warm, Dry, Intact Sepsis Event Note - Evaluation Sepsis Screening Result: No Definite Risk - Focused Exam Vital Signs: Vital Signs Temp Pulse Resp BP BP Pulse Ox 09/02/19 07:41 149/57 H 09/02/19 06:00 35.4 C L 92 20 146/87 H 96 09/01/19 22:00 36.4 C 93 20 165/62 H 96 Date Exam was Performed: 09/02/19 Time Exam was Performed: 09:25 - Problem List & Annotations (1) Frequent falls SNOMED Code(s): 534798193 Code(s): R29.6 - REPEATED FALLS Status: Acute Current Visit: Yes (2) Head contusion SNOMED Code(s): 061688668 Code(s): S00.93XA - CONTUSION OF UNSPECIFIED PART OF HEAD, INITIAL ENCOUNTER Status: Acute Current Visit: Yes Qualifiers: Encounter type: subsequent encounter Contusion of head detail: orbital tissues Laterality: right Qualified Code(s): S05.11XD - Contusion of eyeball and orbital tissues, right eye, subsequent encounter (3) Hyponatremia SNOMED Code(s): 78921183 Code(s): E87.1 - HYPO-OSMOLALITY AND HYPONATREMIA Status: Chronic Current Visit: Yes (4) Dehydration SNOMED Code(s): 90215099 Code(s): E86.0 - DEHYDRATION Status: Acute Current Visit: Yes (5) Alzheimer's dementia SNOMED Code(s): 92321663 Code(s): G30.9 - ALZHEIMER'S DISEASE, UNSPECIFIED; F02.80 - DEMENTIA IN OTH DISEASES CLASSD ELSWHR W/O BEHAVRL DISTURB Status: Chronic Current Visit: Yes Qualifiers: Alzheimer's disease onset: late-onset Dementia behavioral disturbance: without behavioral disturbance Qualified Code(s): G30.1 - Alzheimer's disease with late onset; F02.80 - Dementia in other diseases classified elsewhere without behavioral disturbance (6) Diabetes mellitus SNOMED Code(s): 12096547 Code(s): E11.9 - TYPE 2 DIABETES MELLITUS WITHOUT COMPLICATIONS Status: Chronic Current Visit: Yes Qualifiers: Diabetes mellitus type: type 2 Diabetes mellitus exterminator termite insulin use: without exterminator termite use Diabetes mellitus complication status: without complication Qualified Code(s): E11.9 - Type 2 diabetes mellitus without complications (7) Low back pain SNOMED Code(s): 770780118 Code(s): M54.5 - LOW BACK PAIN Status: Chronic Current Visit: Yes Qualifiers: Chronicity: chronic Back pain laterality: unspecified Sciatica presence: unspecified whether sciatica present Qualified Code(s): M54.5 - Low back pain; G89.29 - Other chronic pain - Problem List Review Problem List Initiated/Reviewed/Updated: Yes - My Orders Last 24 Hours: My Active Orders 09/01/19 20:00 Sodium Chloride 1 gm PO BID 09/02/19 08:25 OSMOLALITY - URINE Routine SODIUM, URINE RAND/24HR Routine 09/02/19 09:15 Sodium Chloride 0.9% [Normal Saline] 1,000 ml IV ASDIRECTED 09/02/19 14:00 BASIC METABOLIC PANEL,BMP [CHEM] Routine WBC WITH AUTO DIFF [HEME] Routine - Assessment Assessment:: 89 yo female hospital day #2 with hyponatremia and a decline in functional status. Sodium is slightly down today. Patient with increased confusion but otherwise no change in symptoms from admission. - Plan Plan:: #1 Frequent Falls #2 Head Contusion - Cause for her decline in mobility remains unclear. - At this point, increasingly likely this is more related to progression of dementia than anything else, possibly with a concussion type picture after her head contusion. - CT head and CT neck both negative for acute findings. - Unclear if this will be her new baseline. #3 Hyponatremia, chronic #4 Dehydration - Labs today (sodium, creatinine, WBC) all suggestive of mild dehydration. - Therefore, will resume IV fluids. - Recheck lab this afternoon at 2 pm. - Urine sodium and osmolality pending. - Will also hold lasix in case this is contributing. #5 Alzheimer dementia - Increased confusion likely related to lack of sleep. - Will consider addition of seroquel tonight to help her get some rest in hopes this will help with some of her confusion. - Continue frequent reorientation. - Continue home medications. #6 UTI - Patient will complete her course of bactrim today. - Will consider repeating a u/a if behaviors do not improve with sleep. #7 Type 2 DM - This is diet controlled. - Will not monitor glucoses aside from with am labs. #8 Chronic low back pain - Continue home medications. Patient will remain on acute status today - anticipate she will d/c back to SNF in the next 1-2 days. See plan as above. Code status is DNR/DNI - discussed on admission. Patient is not on pharmacologic VTE prophylaxis as it is felt the risks outweigh the benefits.
[2019-09-02] MEDS: Sodium Chloride 0.9% 1,000 ML IV SCH ×2 (09:45→20:10)
[2019-09-02 14:17] LABS: ANION GAP 11.7 mmol/L (10-20)
[2019-09-02] MEDS: QUEtiapine 25 MG Tab PO SCH (20:08)
[2019-09-02] MEDS: Melatonin 3 MG Tab PO SCH (20:08)
[2019-09-02] MEDS: diphenhydrAMINE 25 MG Cap PO PRN (20:09)
[2019-09-02] MEDS: Baclofen 10 MG Tab PO SCH (20:09)
[2019-09-02] MEDS: Latanoprost 0.005% Ophth Soln 2.5 ML Bottle EYEBOTH SCH (20:11)
[2019-09-03] MEDS: Levothyroxine 112 MCG Tab PO SCH (06:04)
[2019-09-03] MEDS: Levothyroxine 25 MCG Tab PO SCH (06:05)
[2019-09-03] MEDS: Sodium Chloride 0.9% 1,000 ML IV SCH (06:08)
[2019-09-03 06:58] LABS: CHLORIDE,CL 96 mmol/L (98-107); SODIUM,NA 130 mmol/L (136-145)
[2019-09-03 07:00] LABS: ANION GAP 13.5 mmol/L (10-20)
[2019-09-03] MEDS: Polyethylene Glycol 3350 Powder 17 GM Packet PO SCH ×2 (08:24→20:39)
[2019-09-03] MEDS: amLODIPine 5 MG Tab PO SCH (08:25)
[2019-09-03] MEDS: Calcium Carbonate/Vitamin D3 1250 MG-200 Unit Tab PO SCH ×2 (08:25→20:40)
[2019-09-03] MEDS: Acetaminophen 500 MG Tab PO SCH ×3 (08:25→20:40)
[2019-09-03] MEDS: DULoxetine 60 MG Cap PO SCH (08:28)
[2019-09-03] MEDS: Beta-Carotene (Vitamin A) w/Vitamin C & E plus Minerals Tab PO SCH ×2 (08:28→20:41)
[2019-09-03] MEDS: Multivitamins with Iron/Calcium/Folic Acid/Minerals Tab PO SCH (08:28)
[2019-09-03] MEDS: Cholecalciferol (Vitamin D3) 25 MCG Tab PO SCH (08:29)
[2019-09-03] MEDS: Sodium Chloride 1 GM Tab PO SCH ×2 (08:31→20:43)
[2019-09-03] MEDS: Gabapentin 100 MG Cap PO SCH ×3 (08:31→20:40)
[2019-09-03] MEDS: DULoxetine 30 MG Cap PO SCH (08:36)
[2019-09-03] MEDS: Lidocaine 4% 1 each Patch TOP SCH (08:43)
[2019-09-03] MEDS ORDERED: Calcium Carbonate 750 MG Tab.Chew PO PRN (09:45)
[2019-09-03] MEDS: Enoxaparin 30 MG/0.3 ML Syringe SUBCUT SCH (09:48)
[2019-09-03] MEDS: cefTRIAXone 1 GM Vial IVPUSH SCH (09:48)
--- NOTE | 2019-09-03 09:59 | PN ---
Progress Note for DAVID HERNANDEZ Date: 09/03/2019 Room #: VM.217 SUBJECTIVE: This is hospital day #4 on an 89-year-old, admitted with fall, head injury, confusion, weakness, and severe hyponatremia. The patient's sodium was 127. She was felt to be dehydrated, so was placed on IV fluids. She was eating about 30% to 50% of her meals. She normally walks all over the care center, but now is requiring assist of two. The patient states she has the same low back pain she has always had. She had a head CT and neck CTs which did not reveal any acute injuries. She is not short of breath. She is having no fevers or cough but did report having burning still this morning with urination despite completing a course of Bactrim for E coli UTI on yesterday. The patient also had a UTI last month and was also treated with Bactrim. Her culture is susceptible. Earlier this spring, her thyroid was increased to 137 mcg daily. Her TSH is still mildly elevated. COVID-19 testing was negative. It also should be noted that the patient has not slept well since coming to the hospital despite getting Seroquel last night. OBJECTIVE: Vital Signs: The patient has a weight of 68.8 kg, blood pressure 141/60, respiratory rate 20, O2 of 94% on room air, and temperature 96.8. General: She is in no acute distress. Heart: She does have a murmur. Lungs: Her lung sounds are clear to auscultation bilaterally without crackles or wheezes. Abdomen: Nondistended. Positive bowel sounds. Nontender. Extremities: Warm and dry. No edema. Mental Status: She is disoriented x3. Skin: Does show her to have the bruise over the right forehead. There is no significant hematoma there. Eyes: Her extraocular motor function is intact, and her pupils are equal, round, and reactive to light. LABORATORY DATA: Lab work today did show the patient to have a white count up to 10.1, hemoglobin 12.5, platelets 328. Sodium 130, potassium 4.5, chloride 96, bicarb 25, BUN 19, creatinine 0.7, glucose 118, calcium 8.9. Urine osmolality and sodium are pending. ASSESSMENT: 1. Fall with head injury. The patient seems to be quite stable for mentation at her baseline. She has not been recognizing me for several visits. She thinks she is at [facility] currently. No further neuro imaging is indicated. 2. Generalized weakness with recent urinary tract infection. We will get her working with therapy. We will repeat a urinalysis. 3. Recent Escherichia coli urinary tract infection, recurrent, treated with Bactrim, finished yesterday. We will check a urinalysis to ensure it has cleared given she reported some pain with urination this morning. 4. Hyponatremia, possibly hypovolemic. She seemed to have improved with IV fluids. She is also on Cymbalta which can contribute. I will cut the dose down to 60 mg. 5. Hyponatremia, slightly undertreated, recently increased on her dose to 137 mcg daily. We will increase to 150 and discharge her on that dose. 6. Diet-controlled diabetes. Her blood sugars on her panels have been excellent. 7. Cognitive impairment due to late-onset Alzheimer's, at least moderate. 8. Adjustment disorder with depressed mood. 9. Osteoporosis. She got her Prolia last month. 10.Chronic back pain. She is no longer on narcotics, but is on Neurontin. There have been no changes there. 11.Essential hypertension. She is on her home medications except Lasix is on hold. Blood pressure was higher during the night up to 163, but improving this morning. PLAN: The patient will be stopped on IV fluids. We will start her on Lovenox for DVT prophylaxis. We will repeat her UA and decide if further antibiotics are warranted. We will get her up and working with therapies here. Anticipate that she will be stable enough for discharge back to the [facility] tomorrow. We will have to repeat COVID testing then. We will decrease Cymbalta. Addendum: UA still mildly positive but with pain with urination so will clt urine and give IV Rocephin today. ANDREWA: 09/03/2019 09:06:57 MODL: 09/03/2019 09:48:20 /[id number] KAROLYN
[2019-09-03] MEDS ORDERED: ESTRADIOL TOP SCH (20:00)
[2019-09-03] MEDS: Latanoprost 0.005% Ophth Soln 2.5 ML Bottle EYEBOTH SCH (20:39)
[2019-09-03] MEDS: Melatonin 3 MG Tab PO SCH (20:40)
[2019-09-03] MEDS: QUEtiapine 25 MG Tab PO SCH (20:41)
[2019-09-03] MEDS: Baclofen 10 MG Tab PO SCH (20:41)
[2019-09-03] MEDS: diphenhydrAMINE 25 MG Cap PO PRN (20:41)
[2019-09-04 06:55] LABS: CHLORIDE,CL 96 mmol/L (98-107)
[2019-09-04 06:58] LABS: ANION GAP 10.8 mmol/L (10-20); SODIUM,NA 129 mmol/L (136-145)
[2019-09-04] MEDS ORDERED: Levothyroxine 150 MCG Tab PO SCH (07:00)
[2019-09-04] MEDS ORDERED: Lidocaine 4% 1 each Patch TOP SCH (08:00)
[2019-09-04] MEDS: Polyethylene Glycol 3350 Powder 17 GM Packet PO SCH (08:05)
[2019-09-04] MEDS: cefTRIAXone 1 GM Vial IVPUSH SCH (08:33)
[2019-09-04] MEDS: Enoxaparin 30 MG/0.3 ML Syringe SUBCUT SCH (08:35)
[2019-09-04] MEDS: Multivitamins with Iron/Calcium/Folic Acid/Minerals Tab PO SCH (08:41)
[2019-09-04] MEDS: Calcium Carbonate/Vitamin D3 1250 MG-200 Unit Tab PO SCH (08:41)
[2019-09-04] MEDS: DULoxetine 60 MG Cap PO SCH (08:41)
[2019-09-04] MEDS: Gabapentin 100 MG Cap PO SCH (08:41)
[2019-09-04] MEDS: Cholecalciferol (Vitamin D3) 25 MCG Tab PO SCH (08:41)
[2019-09-04] MEDS: Acetaminophen 500 MG Tab PO SCH (08:41)
[2019-09-04] MEDS: Beta-Carotene (Vitamin A) w/Vitamin C & E plus Minerals Tab PO SCH (08:41)
[2019-09-04] MEDS: amLODIPine 5 MG Tab PO SCH (09:03)
[2019-09-04] MEDS: Sodium Chloride 1 GM Tab PO SCH (09:51)
--- NOTE | 2019-09-04 10:56 | DISCH ---
PRIMARY DISCHARGE DIAGNOSES: 1. Epkga-ay-tzfaltj hyponatremia. 2. Urinary tract infection secondary to Escherichia coli cystitis. 3. Dementia with delirium due to infection and hyponatremia. 4. Fall with head injury, possibly a postconcussion syndrome, improving. 5. Generalized weakness due to medical condition with infection and hyponatremia. 6. Hypothyroidism, undertreated. TSH still elevated. 7. Diet-controlled diabetes. 8. Adjustment disorder. 9. Osteoporosis. 10.Chronic back pain. 11.Essential hypertension. REASON FOR ADMISSION: On the date of admission, this 89-year-old female was brought over to the clinic due to increasing weakness, a fall, and just overall not doing well at the [facility]. She had been on Bactrim for treatment of a UTI. She had lab work in the clinic which showed her to have a sodium of 128. The patient was initially placed on IV fluids and later did have a urine osmolality and a urine sodium done which showed urine sodium 73, osmolality of the urine 334, but the patient was on Lasix. UA was repeated and did show still 5 to 10 wbc's, and patient admitted that she was having burning still, so did get IV Rocephin on 09/03/2019 and 09/04/2019, had completed her Bactrim on 09/02/2019. She otherwise had improved mentation. She even recognized me prior to discharge. Her IV fluids were stopped 24 hours prior to discharge and her sodium did improve up to 130 and then came back to 129 today. The patient's Cymbalta was decreased from 90 to 60 mg. It was felt that this might be contributing to her hyponatremia. Her blood work was monitored. Her hemoglobin remained in the 12 range and was 11.6 on discharge. She was started on Lovenox on 09/03/2019 for DVT prophylaxis after it was felt that she was stable from a head injury with no bleeding. White count was mildly elevated at 10.8, but she had no fever, cough, or shortness of breath, and she was eating up to 100% of her meals. The patient was seen by Therapy and it was felt she would benefit from further therapy at [facility]. The patient did have a bowel movement also recently. PHYSICAL EXAMINATION: Vital Signs: Discharge vitals include temperature 97.7, pulse 71, blood pressure 133/54, respiratory rate 16, and O2 of 96 on room air. General: She is in no acute distress. Heart: Regular rate and rhythm with murmur. Lungs: Lung sounds are clear to auscultation bilaterally without crackles or wheezes. Abdomen: Positive bowel sounds. Soft, nontender. Extremities: Warm and dry. No edema. Mental Status: She is alert. She is orientated x2 recognizing me and believing the month was July which we felt was close enough to August. However, [place] [facility]. DISCHARGE PLANS AND INSTRUCTIONS: She is going back to [facility]. She will have a TSH and other lab work due again in December, but will need a BMP next week due to hyponatremia. She will be on salt tabs twice daily. She will be on Cymbalta 60 mg daily. She will otherwise need no further antibiotics on discharge. She will have Lasix now only as needed for leg swelling. She will have PT, OT at [facility]. I will see her on next [facility] rounds. Greater than 30 minutes spent on the discharge process. MKA: 09/04/2019 10:27:02 MODL: 09/04/2019 10:45:36 /[id number]
== END 2019-09-04 09:55 | DRG 640 ==
LOC: VM.MS 16:16
PROVIDERS: ADMIT Family Medicine; ATTEND Internal Medicine
DX: E87.1 Hypo-osmolality and hyponatremia (principal); G93.41 Metabolic encephalopathy; F05 Delirium due to known physiological condition; B96.20 Unspecified Escherichia coli [E. coli] as the cause of diseases classified elsewhere; N30.90 Cystitis, unspecified without hematuria; F03.90 Unspecified dementia, unspecified severity, without behavioral disturbance, psychotic disturbance, mood disturbance, and anxiety; Z66 Do not resuscitate; E03.9 Hypothyroidism, unspecified; E11.9 Type 2 diabetes mellitus without complications; F43.20 Adjustment disorder, unspecified; M81.0 Age-related osteoporosis without current pathological fracture; G89.29 Other chronic pain; M54.9 Dorsalgia, unspecified; I10 Essential (primary) hypertension; R29.6 Repeated falls; F02.80 Dementia in other diseases classified elsewhere, unspecified severity, without behavioral disturbance, psychotic disturbance, mood disturbance, and anxiety; F41.9 Anxiety disorder, unspecified; K21.9 Gastro-esophageal reflux disease without esophagitis; K59.09 Other constipation; E78.5 Hyperlipidemia, unspecified; M79.7 Fibromyalgia; M54.5 Low back pain; I34.0 Nonrheumatic mitral (valve) insufficiency; Z96.653 Presence of artificial knee joint, bilateral; Z20.828 Contact with and (suspected) exposure to other viral communicable diseases; S05.11XD Contusion of eyeball and orbital tissues, right eye, subsequent encounter; G30.1 Alzheimer's disease with late onset; W19.XXXA Unspecified fall, initial encounter; Z79.899 Other long term (current) drug therapy; Z98.890 Other specified postprocedural states; Z90.89 Acquired absence of other organs; Z90.49 Acquired absence of other specified parts of digestive tract; Z90.710 Acquired absence of both cervix and uterus; Z79.890 Hormone replacement therapy; Z91.048 Other nonmedicinal substance allergy status
CPT/HCPCS: 36415; 70450; 72125; 80048; 81001; 82962; 83735; 83880; 83935; 84295; 84300; 84443; 85025; 87086; 97161-GP; A9270-GY; J0696; J1650; J7030; U0002

== ENCOUNTER 2019-12-02 08:41 | Emergency (ER) | payer MEDICARE, BC ==
--- NOTE | 2019-12-02 08:53 | EDM.PDOC ---
ED HPI GENERAL MEDICAL PROBLEM - General Chief Complaint: General Stated Complaint: left rib pain Time Seen by Provider: 12/02/19 08:41 Source of Information: Reports: Patient - History of Present Illness INITIAL COMMENTS - FREE TEXT/NARRATIVE: Patient comes into the emergency department by EMS With complaints of fall resulting in left rib pain. Patient states that she had fallen last night. [facility] staff stated that they did contact the patient's PCP and they did advise that she could wait until morning unless she became unstable. Patient localizes her discomfort to the left rib cage area. Last night it was noted that she may have had some neck pain or flank pain however the patient denies that today she states her discomfort and pain is localized in the left rib area right underneath her breast. Patient states that if she is lying in relaxing the pain is not significant and she has no issues. However someone tries to move her she states that the pain is significant. Patient did have a transdermal patch placed on her back to help with the muscle stiffness. Patient feels that did work With her discomfort. Patient denies hitting her head, loss of consciousness, or difficulty ambulating. Patient states she was able to get up on her own. Patient currently denies any chest pain, shortness of breath, dizziness, lightheadedness, blurred vision, numbness, tingling, GI upset, loss of bowel or bladder, or peripheral edema. Patient states is been relatively healthy and has not had any Covid19 symptoms or had any positive test. Onset: Sudden Onset Date: 12/01/19 Location: Reports: Chest Quality: Reports: Other Severity: Mild Improves with: Reports: None Worsens with: Reports: None Associated Symptoms: Reports: No Other Symptoms - Related Data Allergies Allergy/AdvReac Type Severity Reaction Status Date / Time No Known Allergies Allergy Verified 12/02/19 09:03 Home Meds: Home Meds Gabapentin [Neurontin] 200 mg PO BID 12/21/17 [History] Acetaminophen [Acetaminophen Extra Strength] 1,000 mg PO TID 04/30/19 [History] Baclofen 10 mg PO BEDTIME 04/30/19 [History] Gabapentin [Neurontin] 300 mg PO BEDTIME 04/30/19 [History] Latanoprost 1 drop EYEBOTH BEDTIME 04/30/19 [History] Melatonin 6 mg PO BEDTIME 04/30/19 [History] Multivitamin with Minerals [Multiple Vitamin] 1 tab PO DAILY 04/30/19 [History] Sennosides/Docusate Sodium [Senna Plus 8.6-50 mg Tablet] 1 tab PO BID 04/30/19 [History] amLODIPine [Norvasc] 5 mg PO DAILY 04/30/19 [History] estradioL [Estrace 0.01% Vaginal Crm] 1 applic TOP MOFR 04/30/19 [History] polyethylene glycoL 3350 [MiraLAX] 17 gm PO BID 04/30/19 [History] Calcium Citrate/Vitamin D3 [Calcitrate + Vit D Cap (315 MG/250 UNITS)] 1 tab PO BID 08/31/19 [History] Cholecalciferol (Vitamin D3) [Vitamin D3] 1,000 unit PO DAILY 08/31/19 [History] Enalapril [Vasotec] 15 mg PO DAILY 08/31/19 [History] Trolamine Salicylate/Aloe Vera [Aspercreme 10% Cream] 1 applic TOP TID PRN 08/31/19 [History] Vits A,C,E/Lutein/Minerals [Healthy Eyes] 1 tab PO BID 08/31/19 [History] bisacodyL [Bisacodyl] 5 mg PO DAILY PRN 08/31/19 [History] Calcium Carbonate [Tums] 1,000 mg PO QID PRN 09/03/19 [History] Lidocaine 4% [Aspercreme 4%] 1 patch TOP DAILY PRN 09/03/19 [History] DULoxetine [Cymbalta] 60 mg PO DAILY cap 09/04/19 [Rx] Furosemide 20 mg PO DAILY PRN #0 09/04/19 [Rx] Levothyroxine 150 mcg PO ACBREAKFAST #30 tablet 09/04/19 [Rx] Sodium Chloride 1 gm PO BID #28 tablet 09/04/19 [Rx] Past Medical History HEENT History: Reports: Cataract, Glaucoma, Hard of Hearing, Impaired Vision Cardiovascular History: Reports: High Cholesterol, Hypertension, Other (See Below) Other Cardiovascular History: Mitral regurgitation. Valvular heart disease Gastrointestinal History: Reports: GERD, Other (See Below) Other Gastrointestinal History: Loose stools [employer] History: Reports: Musculoskeletal History: Reports: Arthritis, Back Pain, Chronic, Fibromyalgia, Osteoarthritis, Other (See Below) Other Musculoskeletal History: Myalgia. Chronic pain to bilateral shoulders Neurological History: Reports: Alzheimers Disease Other Neuro History: Dementia, just starting. Acute cerebeller hemorrage Psychiatric History: Reports: Anxiety, Dementia, Depression, Other (See Below) Other Psychiatric History: Adjustment disorder Endocrine/Metabolic History: Reports: Diabetes, Type II, Hypothyroidism, Osteoporosis Oncologic (Cancer) History: Reports: Breast, Uterine - Past Surgical History GI Surgical History: Reports: Appendectomy, Cholecystectomy, Hernia, Abdominal, Polypectomy Other GI Surgeries/Procedures: Adenocarcinoma Female Surgical History: Reports: Section, Hysterectomy Musculoskeletal Surgical History: Reports: Knee Replacement Other Musculoskeletal Surgeries/Procedures:: Bilateral. R foot pain. Laminectomy W\partial facetectomy foraminotomy herniated diskectomy 1. Spine surgery ED ROS GENERAL - Review of Systems Review Of Systems: Comprehensive ROS is negative, except as noted in HPI. Constitutional: Reports: No Symptoms HEENT: Reports: No Symptoms Respiratory: Reports: No Symptoms Cardiovascular: Reports: No Symptoms Endocrine: Reports: No Symptoms GI/Abdominal: Reports: No Symptoms : Reports: No Symptoms Musculoskeletal: Reports: No Symptoms Skin: Reports: No Symptoms Neurological: Reports: No Symptoms Psychiatric: Reports: No Symptoms Hematologic/Lymphatic: Reports: No Symptoms Immunologic: Reports: No Symptoms ED EXAM, GENERAL - Physical Exam Exam: See Below Exam Limited By: No Limitations General Appearance: Alert, WD/WN, No Apparent Distress Eye Exam: Bilateral Eye: EOMI, PERRL Head: Atraumatic, Normocephalic Neck: Normal Inspection, Supple, Non-Tender, Full Range of Motion Respiratory/Chest: No Respiratory Distress, Lungs Clear, Normal Breath Sounds, No Accessory Muscle Use, Other (left rib region 11-12 area in the axial region. No bruising or swelling noted. ) Cardiovascular: Normal Peripheral Pulses, Regular Rate, Rhythm, No Edema, No Murmur Peripheral Pulses: 4+: Radial (L), Radial (R), Dorsalis Pedis (L), Dorsalis Pedis (R) GI/Abdominal: Normal Bowel Sounds, Soft, Non-Tender, No Organomegaly, No Abnormal Bruit, No Mass Neurological: Alert, Oriented, CN II-XII Intact, Normal Cognition Psychiatric: Normal Affect, Normal Mood Skin Exam: Warm, Dry, Intact, Normal Color Course - Orders/Labs/Meds Orders: Active Orders 24 hr Category Date Time Status Ribs 2V w Chest Lt [CR] Stat Exams 12/02/19 08:44 Ordered Departure - Departure Time of Disposition: 09:50 Disposition: DC/Tfer to SNF 03 Condition: Good Clinical Impression: Contusion of rib on left side Qualifiers: Encounter type: initial encounter Qualified Code(s): S20.212A - Contusion of left front wall of thorax, initial encounter - Discharge Information *PRESCRIPTION DRUG MONITORING PROGRAM REVIEWED*: Not Applicable *COPY OF PRESCRIPTION DRUG MONITORING REPORT IN PATIENT LIANA: Not Applicable Instructions: Rib Contusion Forms: ED Department Discharge Additional Instructions: 1. Rest 2. continue at home medications 3. Can use tylenol and ibuprofen as needed for pain and discomfort 4. Diet as tolerated 5. Activity as tolerated 6. Elevated the injured area above the level of the heart to decrease swelling and discomfort. 7. Use ice 3-4 times a day at 20-minute intervals to help with any swelling and discomfort 8. Follow-up with your primary care provider symptoms continue or to progress 9. Follow with any questions or concerns 10. Discharge information has been provided regarding your injury - My Orders Last 24 Hours: My Active Orders 12/02/19 08:44 Ribs 2V w Chest Lt [CR] Stat - Assessment/Plan Last 24 Hours: My Active Orders 12/02/19 08:44 Ribs 2V w Chest Lt [CR] Stat Assessment:: 1. left rib contusion 2. fall Plan: 1. X-ray completed in the emergency department results reviewed with the patient 2. Ice Applied to the affected limb 3. Medication offered to the patient- pt denied wanting any at the time 4. Education regarding splinting, activity, [id number] medications, and follow-up care provided. 5. All questions and concerns addressed with the patient prior to discharge
--- NOTE | 2019-12-02 09:47 | CR ---
[id number] RAD/RAD Ribs Left W PA Chest EXAM: 4 VIEWS LEFT RIBS. INDICATION: FALL. COMPARISON: None. DISCUSSION: No fracture, dislocation or other acute osseous abnormality. Visualized lungs are clear. Age-indeterminate compression deformities of the thoracic spine. IMPRESSION: 1. No radiographic evidence of acute rib fracture. Ty Otto DO 12/02/19 0945 Thank you for allowing us to participate in the care of your patient.
== END 2019-12-02 10:18 ==
LOC: VM.ED 08:41
DX: S20.212A Contusion of left front wall of thorax, initial encounter (principal); I10 Essential (primary) hypertension; G30.9 Alzheimer's disease, unspecified; F02.80 Dementia in other diseases classified elsewhere, unspecified severity, without behavioral disturbance, psychotic disturbance, mood disturbance, and anxiety; E11.9 Type 2 diabetes mellitus without complications; F32.9 Major depressive disorder, single episode, unspecified; F41.9 Anxiety disorder, unspecified; E03.9 Hypothyroidism, unspecified; Z90.49 Acquired absence of other specified parts of digestive tract; Z90.710 Acquired absence of both cervix and uterus; Z79.899 Other long term (current) drug therapy; W19.XXXA Unspecified fall, initial encounter
CPT/HCPCS: 71101-LT; 99283; 99284